=== PATIENT | male | born 1950 | race Native Hawaiian/Other Pacific Islander ===

== ENCOUNTER 2016-06-22 11:07 | Outpatient (CLI) | payer OTHER ==
[2016-06-22 12:14] LABS: POTASSIUM 4.1 mmol/L (3.6-5.2); SODIUM 136 mmol/L (136-145)
[2016-06-22 13:02] LABS: PLATELET COUNT 279 K/uL (142-355)
== END 2016-06-22 19:08 | disposition home or self-care (01) ==
LOC: LABW 11:07
PROVIDERS: Nurse Practitioner Family
DX: E53.8 Deficiency of other specified B group vitamins (principal); Z11.59 Encounter for screening for other viral diseases; E55.9 Vitamin D deficiency, unspecified; Z12.5 Encounter for screening for malignant neoplasm of prostate; E11.65 Type 2 diabetes mellitus with hyperglycemia
CPT/HCPCS: 36415; 80053; 80074; 82306; 82607; 82746; 83036; 83090; 83918; 84153; 85027; 85044; 86255; 86340

== ENCOUNTER 2016-10-06 13:06 | Outpatient (CLI) | payer OTHER ==
[2016-10-06 13:42] LABS: POTASSIUM 4.1 mmol/L (3.6-5.2); SODIUM 137 mmol/L (136-145)
== END 2016-10-06 20:02 | disposition home or self-care (01) ==
LOC: LABW 13:06
PROVIDERS: Nurse Practitioner Family
DX: E11.40 Type 2 diabetes mellitus with diabetic neuropathy, unspecified (principal)
CPT/HCPCS: 36415; 80048; 82043; 82570; 83036

== ENCOUNTER 2017-01-16 09:22 | Outpatient (CLI) | payer OTHER ==
[2017-01-16 09:57] LABS: PLATELET COUNT 309 K/uL (142-355)
[2017-01-16 10:10] LABS: POTASSIUM 3.8 mmol/L (3.6-5.2); SODIUM 136 mmol/L (136-145)
== END 2017-01-16 19:01 | disposition home or self-care (01) ==
LOC: LABW 09:22
PROVIDERS: Nurse Practitioner Family
DX: I10 Essential (primary) hypertension (principal); M06.4 Inflammatory polyarthropathy; E55.9 Vitamin D deficiency, unspecified; E53.8 Deficiency of other specified B group vitamins; E11.40 Type 2 diabetes mellitus with diabetic neuropathy, unspecified
CPT/HCPCS: 36415; 80053; 80061; 82043; 82306; 82570; 82607; 83036; 85027; 85651; 86140; 86200; 86430

== ENCOUNTER 2017-06-04 11:35 | Outpatient (CLI) | payer OTHER ==
[2017-06-04 12:48] LABS: PLATELET COUNT 312 K/uL (142-355)
[2017-06-04 13:44] LABS: POTASSIUM 4.3 mmol/L (3.6-5.2); SODIUM 136 mmol/L (136-145)
== END 2017-06-04 20:29 | disposition home or self-care (01) ==
LOC: LABW 11:35
PROVIDERS: Nurse Practitioner Family
DX: I10 Essential (primary) hypertension (principal); E11.40 Type 2 diabetes mellitus with diabetic neuropathy, unspecified; E53.8 Deficiency of other specified B group vitamins; Z86.39 Personal history of other endocrine, nutritional and metabolic disease
CPT/HCPCS: 36415; 80053; 80061; 82043; 82306; 82570; 82608; 83036; 85027

== ENCOUNTER 2017-06-12 13:50 | Outpatient (CLI) | payer OTHER | END 2017-06-12 14:50 | disposition home or self-care (01) | LOC: RAD 13:50 | DX: M54.5 Low back pain (principal); M54.2 Cervicalgia; M54.6 Pain in thoracic spine; M25.552 Pain in left hip ==

== ENCOUNTER 2017-07-02 08:07 | Outpatient (CLI) | payer OTHER | END 2017-07-02 20:22 | disposition home or self-care (01) | LOC: MRI 08:07 | DX: M54.5 Low back pain (principal); M54.2 Cervicalgia; M54.6 Pain in thoracic spine ==

== ENCOUNTER 2017-09-27 09:26 | Outpatient (CLI) | payer OTHER ==
[2017-09-27 10:24] LABS: PLATELET COUNT 321 K/uL (142-355)
[2017-09-27 11:12] LABS: POTASSIUM 4.2 mmol/L (3.6-5.2)
== END 2017-09-27 22:27 | disposition home or self-care (01) ==
LOC: LABW 09:26
PROVIDERS: Nurse Practitioner Family
DX: E53.8 Deficiency of other specified B group vitamins (principal); E11.40 Type 2 diabetes mellitus with diabetic neuropathy, unspecified; R41.3 Other amnesia; Z86.39 Personal history of other endocrine, nutritional and metabolic disease; R35.1 Nocturia
CPT/HCPCS: 36415; 80053; 80061; 82043; 82306; 82570; 82607; 82746; 83918; 84153; 84443; 85027; 86592

== ENCOUNTER 2018-02-08 09:00 | Outpatient (CLI) | payer OTHER ==
[2018-02-08 09:23] LABS: PLATELET COUNT 272 K/uL (142-355)
[2018-02-08 12:29] LABS: POTASSIUM 3.9 mmol/L (3.6-5.2)
== END 2018-02-08 19:37 | disposition home or self-care (01) ==
LOC: LABW 09:00
PROVIDERS: Internal Medicine
DX: R80.8 Other proteinuria (principal); I10 Essential (primary) hypertension; E11.40 Type 2 diabetes mellitus with diabetic neuropathy, unspecified
CPT/HCPCS: 36415; 80048; 80061; 80069; 81000; 82043; 82570; 83883; 84155; 84550; 85027; 86039

== ENCOUNTER 2019-01-03 11:02 | Outpatient (CLI) | payer OTHER ==
[2019-01-03 11:36] LABS: PLATELET COUNT 305 K/uL (142-355)
[2019-01-03 11:42] LABS: POTASSIUM 3.9 mmol/L (3.6-5.2)
== END 2019-01-03 23:46 | disposition home or self-care (01) ==
LOC: LABW 11:02
PROVIDERS: Nurse Practitioner Family
DX: E11.9 Type 2 diabetes mellitus without complications (principal); E78.2 Mixed hyperlipidemia; I10 Essential (primary) hypertension; Z12.5 Encounter for screening for malignant neoplasm of prostate; E55.9 Vitamin D deficiency, unspecified
CPT/HCPCS: 36415; 80053; 80061; 82043; 82306; 82570; 83036; 84100; 84154; 85027; 85651; 86140

== ENCOUNTER 2019-01-27 10:47 | Outpatient (CLI) | payer OTHER | END 2019-01-27 21:53 | disposition home or self-care (01) | LOC: LABW 10:47 | DX: E78.2 Mixed hyperlipidemia (principal); I10 Essential (primary) hypertension | CPT/HCPCS: 36415; 86618 ==

== ENCOUNTER 2020-11-05 09:29 | Outpatient (CLI) | payer OTHER | END 2020-11-05 19:04 | disposition home or self-care (01) | LOC: RAD 09:29 | PROVIDERS: ATTEND Nurse Practitioner Family | DX: K59.09 Other constipation (principal); R10.84 Generalized abdominal pain ==

== ENCOUNTER 2020-11-09 12:42 | Outpatient (CLI) | payer OTHER ==
[2020-11-09 13:08] LABS: PLATELET COUNT 265 K/uL (142-355)
== END 2020-11-09 19:24 | disposition home or self-care (01) ==
LOC: LABW 12:42
PROVIDERS: ATTEND Nurse Practitioner Family
DX: D51.8 Other vitamin B12 deficiency anemias (principal); E56.8 Deficiency of other vitamins; M17.0 Bilateral primary osteoarthritis of knee
CPT/HCPCS: 36415; 80053; 82607; 83918; 85027; 85652; 86140; 86318

== ENCOUNTER 2022-04-11 08:46 | Outpatient (CLI) | payer OTHER | END 2022-04-11 19:54 | disposition home or self-care (01) | LOC: RAD 08:46 | PROVIDERS: ATTEND Nurse Practitioner Family | DX: E11.9 Type 2 diabetes mellitus without complications (principal); I10 Essential (primary) hypertension; J01.80 Other acute sinusitis; R06.83 Snoring; Z79.899 Other long term (current) drug therapy ==